=== PATIENT | male | born 1995 | race Caucasian/White ===

== ENCOUNTER 2017-09-21 07:55 | Emergency (ER) | payer SELFPAY ==
[2017-09-21] MEDS ORDERED: CEPHALEXIN 500 MG CAP PO ONE (09:09)
--- NOTE | 2017-09-21 09:34 | EDPHY ---
General Time Seen by Provider: 09/21/17 09:09 Narrative: CHIEF COMPLAINT: Laceration to finger HISTORY OF PRESENT ILLNESS: Patient presents with complaints of laceration to left middle finger. This happened approximately midnight, 8 hr prior to presentation. He says he was cutting food with a knife when he accidentally "stabbed myself in the finger." He reports this happened at work. He said that he did not think it was important the times we put a dressing on it went to bed. When he woke this morning, he felt that it was bleeding with should been thus he presents. Minimal pain. No numbness, tingling or weakness. This is on the radial side of the finger. No difficulty bending or straightening the finger. No other associated complaints or modifying factors TIME OF INJURY: Midnight, 8 hr prior to presentation TETANUS STATUS: Less than 2 years ago MEDICAL/SURGICAL/SOCIAL HISTORY: Uncomplicated lives and works here independently. REVIEW OF SYSTEMS: Ten systems reviewed and are negative unless otherwise noted in the HPI EXAMINATION General Appearance: Alert, no distress Head: normocephalic, atraumatic Cardiovascular: Symmetric radial pulses 2+. Brisk cap refill the fingers left hand. Neurological: A&O, sensory symmetric, interossei strength symmetric Skin: Warm and dry, no rash. 1 cm laceration on the left middle finger, medial to the nail without involving the nail. No pulsatile bleeding. No foreign body. Extremities: Minimal tenderness of the left middle finger with a laceration is. There is full flexion extension of the finger including superficialis and profundus. MDM: 9:05 a.m. Laceration to the left middle finger not involving the fingernail. Slight delayed presentation but less than 10 hr. I have administered a digital block. We will proceed with irrigation. Treat with prophylactic Keflex due to delayed presentation. He is neuro intact with no signs of injury to the underlying tendon. 9:35 a.m. Laceration has been loosely approximated with single suture. I do not feel he will need delayed closure. He has been started on Keflex and he will be discharged home with the same therapy for 7 days. Return here for suture removal in 7 days. Wound care discussed. PROCEDURE: Laceration repair Consent: Verbal Location: Left middle finger Length of repair: 1 cm Complexity: Simple Layer involvement: Single Anesthesia: Local digital block Irrigation: Extensive Debridement: None Procedure description: Following good anesthesia, the wound was copiously irrigated. Wound bed was explored with a sterile glove, and there is no foreign body noted. Wound borders were approximated well with good hemostasis. Tolerated well without complication. Suture/Staple material: 5-0 Prolene, 1 simple interrupted suture Wound care: Routine as discussed Suture/Staple removal: 7 Days PROCEDURE: Digital Block Indication: Finger laceration Consent: Verbal Location: Left middle finger Anesthesia: Lidocaine 1% plain, 0.25% Marcaine plain, 5mL Description: Base of the finger was prepped. The above was infused without difficulty. Tolerated well. Good anesthesia. Complications: None SUPERVISION: This patient was independently evaluated without direct involvement of or examination by the attending physician. ED Precautions: Worsening pain. Erythema, edema, cyanosis, pallor, paresthesia or anesthesia. - History Smoking Status: Current every day smoker - Objective Vital Signs: Initial Vital Signs Temperature (C) 98.2 F 09/21/17 07:58 Heart Rate 66 09/21/17 07:58 Respiratory Rate 16 09/21/17 07:58 Blood Pressure 132/68 H 09/21/17 07:58 O2 Sat (%) 97 09/21/17 07:58 O2 Delivery Mode Room Air Allergies/Adverse Reactions: No Known Allergies Allergy (Unverified 09/21/17 07:57) Home Medications: Medication Instructions Recorded Cephalexin [Keflex (*)] 500 mg PO QID #28 cap 09/21/17 Medications Given: Discontinued Medications Cephalexin HCl (Keflex) 500 mg PO EDNOW ONE PRN Reason: Protocol Stop: 09/21/17 09:10 Last Admin: 09/21/17 09:54 Dose: 500 mg Departure - Departure Disposition: Home, Routine, Self-Care Clinical Impression: Laceration of finger with delay in treatment Qualifiers: Encounter type: initial encounter Qualified Code(s): S61.219A - Laceration without foreign body of unspecified finger without damage to nail, initial encounter Condition: Good Instructions: Care For Your Stitches (ED), Laceration (ED) Additional Instructions: 1. Daily wound care as discussed 2. Light weight-bearing until sutures are removed 3. Return here in 7-10 days for suture removal 4. Keflex as prescribed to completion Referrals: Physician,Emergency Dept, [Medical Doctor] - As per Instructions (7-10 days for suture removal) Stand Alone Forms: Work Comp Follow Up, Work Excuse Prescriptions: Cephalexin [Keflex (*)] 500 mg PO QID #28 cap
[2017-09-21 10:06] VITALS: BP 122/63
== END 2017-09-21 10:06 | disposition home or self-care (01) ==
PROC: 0HQGXZZ Repair Left Hand Skin, External Approach (ICD-10-PCS; principal; 2017-09-21)
DX: S61.213A Laceration without foreign body of left middle finger without damage to nail, initial encounter (principal); F17.200 Nicotine dependence, unspecified, uncomplicated; W26.0XXA Contact with knife, initial encounter; Y92.89 Other specified places as the place of occurrence of the external cause; Y99.0 Civilian activity done for income or pay; Y93.89 Activity, other specified